=== PATIENT | male | born 1985 | race Caucasian/White ===

== ENCOUNTER 2017-01-02 01:06 | Emergency (ER) | payer SELFPAY | END 2017-01-02 02:30 | disposition home or self-care (01) | LOC: FER 01:06 | DX: T18.128A Food in esophagus causing other injury, initial encounter (principal) | CPT/HCPCS: J1885 ==

== ENCOUNTER 2021-07-29 14:22 | Emergency (ER) | payer SELFPAY ==
[~2021-07-29 14:22] MED LIST: ZOFRAN4 MG PO; ZPAK PO
[2021-07-29 14:52] LABS: BASOPHIL 0.2 % (0-2); EOSINOPHIL 2.5 % (0-5); HCT 38.4 % (42.0-52.0); HGB 13.3 g/dl (13.2-18.0); LYMPHOCYTE 8.7 % (15-48); MCH 29.4 pg (25.0-31.0); MCHC 34.6 g/dL (32.0-36.0); MCV 84.8 fL (78.0-100.0); MONOCYTE 10.7 % (0-12); MPV 11.6 fL (6.0-9.5); NEUTROPHIL 77.7 % (41-80); NRBC 0; PLT 153 K/uL (150-400); RBC 4.53 M/uL (4.70-6.00); RDW 13.2 % (11.5-14.0); WBC 5.9 K/uL (4.0-10.5)
[2021-07-29 15:14] LABS: BUN/CREAT RATIO (CALC) 15.2 RATIO; CREATININE 0.99 mg/dL (0.67-1.17); POTASSIUM 3.7 mmol/L (3.5-5.1)
[2021-07-29 15:37] LABS: INFLUENZA A NAA NEGATIVE (NEGATIVE)
[2021-07-29 15:46] LABS: CORONAVIRUS 2019 SARS-COV-2 POSITIVE (NEGATIVE)
== END 2021-07-29 16:52 | disposition home or self-care (01) ==
LOC: FER 14:22
PROVIDERS: Nurse Practitioner Family
DX: U07.1 COVID-19 (principal); R07.89 Other chest pain
CPT/HCPCS: 36415; 71045; 80048; 84484; 85025; 93005; J2405; J7030; U0002